=== PATIENT | male | born 1985 | race Two or more races ===

== ENCOUNTER 2024-06-14 10:21 | Emergency (ER) | payer OTHER ==
[~2024-06-14] VITALS: Ht 182.9 cm; Wt 113.4 kg
[2024-06-14 10:31] VITALS: BP 131/72; O2SAT 98
== END 2024-06-14 11:37 | disposition home or self-care (01) ==
LOC: ER 10:21
DX: J03.80 Acute tonsillitis due to other specified organisms (principal)